=== PATIENT | female | born 1990 | race Two or more races ===

== ENCOUNTER 2021-04-20 12:44 | Emergency (ER) | payer BC ==
[~2021-04-20] VITALS: Ht 180.3 cm; Wt 68.1 kg
[2021-04-20 13:37] LABS: BILIRUBIN,URINE NEGATIVE (NEG); CLARITY,URINE CLEAR; COLOR,URINE AMBER; NITRITE,URINE NEGATIVE (NEG); PH,URINE 6.5 (<5.0-8.0); PROTEIN,URINE NEGATIVE (NEG-TRACE)
[2021-04-20] MEDS ORDERED: IV NORMAL SALINE 1000ML BAG 1,000 ML IV SCH (13:45)
[2021-04-20 13:49] LABS: BACTERIA,URINE MODERATE /HPF (0-FEW); RBC,URINE 0 /HPF (0-2); WBC,URINE OCC /HPF (0-4)
--- NOTE | 2021-04-20 14:03 | PHYS DOC ---
Past Medical History Past Surgical History: No Surgical History General Adult EDM: Chief Complaint: PELVIC PAIN HPI: HPI: Patient is a 30 year old female who presents with states for the last 3 days she has had right lower aching pain that is not going away. She states that over the weekend she had a positive test. She states her last menstrual period was March 07. She states last month she went to the clinic and was diagnosed with chlamydia and her and her sexual partner were both treated. She is rating her pain 6 out of 10. Patient states she did have a cold sweat last night but does not think she is been running a fever. She denies nausea, vomiting, diarrhea, chest pain, shortness of breath, cough, vaginal bleeding, abnormal vaginal discharge, back pain, urinary symptoms, dizziness or headache, fever. Patient has a history of 2 live children with normal versus. She states that is her only history. She states no surgeries. Patient states no medications daily. She states she has not taken any pain medications. Review of Systems: Review of Systems: Constitutional: Denies fever or chills. + Cold sweat last night [] Eyes: Denies change in visual acuity. [] HENT: Denies nasal congestion or sore throat. [] Respiratory: Denies cough or shortness of breath. [] Cardiovascular: Denies chest pain or edema. [] GI: + abdominal pain, denies nausea, vomiting, bloody stools or diarrhea. [] : Denies dysuria. [] Musculoskeletal: Denies back pain or joint pain. [] Integument: Denies rash. [] Neurologic: Denies headache, focal weakness or sensory changes. [] Endocrine: Denies polyuria or polydipsia. [] Lymphatic: Denies swollen glands. [] Psychiatric: Denies depression or anxiety. [] Heart Score: C/O Chest Pain: No Risk Factors: Risk Factors: DM, Current or recent (<one month) smoker, HTN, HLP, family history of CAD, obesity. Risk Scores: Score 0 - 3: 2.5% MACE over next 6 weeks - Discharge Home Score 4 - 6: 20.3% MACE over next 6 weeks - Admit for Clinical Observation Score 7 - 10: 72.7% MACE over next 6 weeks - Early Invasive Strategies Current Medications: Current Medications Medications (Trade) Dose Ordered Sig/Volodymyr Start Time Stop Time Status Last Admin Dose Admin Sodium Chloride 1,000 ml @ 1,000 mls/hr Q1H 04/20/21 13:45 04/20/21 14:44 Allergies: Allergies: Allergies Coded Allergies Type Severity Reaction Last Updated Verified No Known Drug Allergies 04/20/21 No Physical Exam: PE: Constitutional: Well developed, well nourished, no acute distress, non-toxic appearance. [] HENT: Normocephalic, atraumatic, bilateral external ears normal, oropharynx moist, no oral exudates, nose normal. [] Eyes: PERRLA, EOMI, conjunctiva normal, no discharge. [] Neck: Normal range of motion, no tenderness, supple, no stridor. [] Cardiovascular:Heart rate regular rhythm, no murmur [] Lungs & Thorax: Bilateral breath sounds clear to auscultation [] Abdomen: Bowel sounds normal, soft, right lower quadrant tenderness, no masses, no pulsatile masses. [] Skin: Warm, dry, no erythema, no rash. [] Back: No tenderness, no CVA tenderness. [] Extremities: No tenderness, no cyanosis, no clubbing, ROM intact, no edema. [] Neurologic: Alert and oriented X 3, normal motor function, normal sensory function, no focal deficits noted. [] Psychologic: Affect normal, judgement normal, mood normal. [] Current Patient Data: Labs: Laboratory Tests Test 04/20/21 13:22 04/20/21 13:35 Urine Collection Type Unknown Urine Color Lo Urine Clarity Clear Urine pH 6.5 (<5.0-8.0) Urine Specific [place] >=1.030 (1.000-1.030) Urine Protein Negative mg/dL (NEG-TRACE) Urine Glucose (UA) Negative mg/dL (NEG) Urine Ketones (Stick) Negative mg/dL (NEG) Urine Blood Negative (NEG) Urine Nitrite Negative (NEG) Urine Bilirubin Negative (NEG) Urine Urobilinogen Dipstick 1.0 mg/dL (0.2 mg/dL) Urine Leukocyte Esterase Negative (NEG) Urine RBC 0 /HPF (0-2) Urine WBC Occ /HPF (0-4) Urine Squamous Epithelial Cells Mod /LPF Urine Bacteria Moderate /HPF (0-FEW) Urine Mucus Mod /LPF POC Urine HCG, Qualitative Hcg positive (Negative) Vital Signs: Vital Signs Date Time Temp Pulse Resp B/P (MAP) Pulse Ox O2 Delivery O2 Flow Rate FiO2 04/20/21 13:24 98.2 76 17 125/60 97 Room Air 98.2 EKG: EKG: [] Radiology/Procedures: Radiology/Procedures: [] Impression: [facility] [id number] [place] [address] IMAGING REPORT Signed PATIENT: PARRIS VERAACCOUNT: [id number] : 1990 LOCATION: ER AGE: 30 SEX: F EXAM STATUS: REG ER ORD. PHYSICIAN: NICCI FRANKLIN APRN REASON: RIGHT LOWER QUAD PAIN; ? Appendicitis PROCEDURE: RIGHT LOWER QUANDRANT EXAM: Abdomen sonogram. HISTORY: Appendicitis. Right lower quadrant pain. TECHNIQUE: Sonographic imaging of the right lower quadrant was performed. COMPARISON: None. FINDINGS: The appendix is not seen. There is no free fluid or mass within the right lower quadrant. There is no evidence of pain with transducer pressure over the right lower quadrant. IMPRESSION: Nonvisualization of the appendix. There are no secondary findings to suggest appendicitis. MRI can be considered in this reportedly gravid patient if there is clinical concern for sonographically occult appendicitis. Electronically signed by: Magdalena Mckinney MD (04/20/2021 2:26 PM) [id number] DICTATED and SIGNED BY: MAGDALENA MCKINNEY MD DATE: 04/20/21 [id number] [address] [id number] IMAGING REPORT Signed PATIENT: PARRIS VERAACCOUNT: [id number] : 1990 LOCATION: ER AGE: 30 SEX: F EXAM STATUS: REG ER ORD. PHYSICIAN: NICCI FRANKLIN APRN REASON: rIGHT LOWER QUAD PAIN PROCEDURE: OB <14 WKS W/TV EXAM: Obstetrics sonogram. HISTORY: Right lower quadrant pain. TECHNIQUE: Transabdominal and transvaginal sonographic imaging of the pelvis was performed. COMPARISON: None. FINDINGS: The uterus measures 10.2 x 6.0 x 4.8 cm. The cervix is closed and measures 4.6 cm in length. There is a small fluid collection within the endome trial cavity, the appearance of which favors an early gestational sac. The mean sac diameter is 7 mm, corresponding with a gestational age of 5 weeks and 3 days. No yolk sac or pole is seen. The ovaries are normal in size and demonstrate normal blood flow. There is a 2.3 cm right corpus luteum cyst. There is no pelvic free fluid. IMPRESSION: 1. Small fluid collection within the endometrial cavity, the appearance of which favors an early gestational sac with a mean sac diameter corresponding with a g estational age of 5 weeks and 3 days. No pole is seen. Correlate with serial beta hCG levels and short-term sonographic follow-up to assess viability and exclude a pseudocyst sac in the setting of ectopic gestation or an empty gestational sac. 2. 2.6 cm right corpus luteum cyst. Electronically signed by: Magdalena Mckinney MD (04/20/2021 2:40 PM) [id number] DICTATED and SIGNED BY: MAGDALENA MCKINNEY MD DATE: 04/20/21 [id number] Course & Med Decision Making: Course & Med Decision Making Pertinent Labs and Imaging studies reviewed. (See chart for details) See HPI. Alert and oriented x4. Ambulatory with a steady gait. Speaks in full clear sentences. Afebrile. Vital signs within normal limits. Abdomen is soft slightly tender at the right lower quadrant with palpation. She states nothing makes his pain worse or better. Pelvic Exam: Grip Assembler present Abdomen: Slightly tender to right lower quadrant External Genitalia: Normal Skin Speculum: Normal vaginal mucosa, white/yellow cervical discharge Bimanual: No adnexal masses or tenderness, No CMT Urine has some bacteria in it and patient states that she has no concerns of STDs at this time. She will wait for the results in 48 hours. However since she is I will go ahead and give her some Rocephin in case she is to get a urinary tract infection. Ultrasound shows a early that is in the uterus. She does have an ovarian cyst. Blood work is unremarkable. Vital signs are unremarkable. Patient will be discharged home to follow-up with primary care provider [] Nick Disclaimer: Draglillie Disclaimer: This electronic medical record was generated, in whole or in part, using a voice recognition dictation system. Departure Departure Impression: Primary Impression: Abdominal pain affecting Additional Impression: Ovarian cyst Qualified Codes: N83.201 - Unspecified ovarian cyst, right side Disposition: HOME / SELF CARE / HOMELESS Condition: STABLE Referrals: NO PCP (PCP) MARTA GOODWIN Jr, MD Patient Instructions: Abdominal Pain During , Ovarian Cyst Additional Instructions: Follow-up with a RN INFORMATICS as soon as possible. Drink plenty of fluids. Take Tylenol for any current pain. If you begin having vaginal bleeding or severe abdominal pain return emergency room. NICCI FRANKLIN RISK LEAD Apr 20, 2021 14:03
[2021-04-20 14:07] LABS: BASO % 1 % (0-3); EOS # 0.1 x10^3/uL (0.0-0.7); EOS % 2 % (0-3); HEMATOCRIT 34.7 % (36.0-47.0); HEMOGLOBIN 11.5 g/dL (12.0-15.5); LYMPH % 28 % (24-48); MEAN CORPUSCULAR HEMOGLOBIN 28 pg (25-35); MEAN CORPUSCULAR HGB CONC 33 g/dL (31-37); MEAN CORPUSCULAR VOLUME 85 fL (79-100); MONO # 0.6 x10^3/uL (0.0-1.1); MONO % 9 % (0-9); NEUT # 4.3 x10^3/uL (1.8-7.7); NEUT % 61 % (31-73); PLATELET COUNT 343 x10^3/uL (140-400); RED BLOOD COUNT 4.09 x10^6/uL (3.50-5.40); RED CELL DISTRIBUTION WIDTH 16.2 % (11.5-14.5); WHITE BLOOD COUNT 7.1 x10^3/uL (4.0-11.0)
[2021-04-20 14:20] LABS: CALCIUM 8.9 mg/dL (8.5-10.1); CREATININE 0.5 mg/dL (0.6-1.0); GFR 144.9; POTASSIUM 3.7 mmol/L (3.5-5.1)
--- NOTE | 2021-04-20 14:29 | RAD ---
EXAM: Abdomen sonogram. HISTORY: Appendicitis. Right lower quadrant pain. TECHNIQUE: Sonographic imaging of the right lower quadrant was performed. COMPARISON: None. FINDINGS: The appendix is not seen. There is no free fluid or mass within the right lower quadrant. T here is no evidence of pain with transducer pressure over the right lower quadrant. IMPRESSION: Nonvisualization of the appendix. There are no secondary findings to suggest appendicitis . MRI can be considered in this reportedly gravid patient if there is clinical concern for sonographi naif occult appendicitis. Electronically signed by: Magdalena Mcginnis MD (04/20/2021 2:26 PM) [id number]
[2021-04-20 14:30] LABS: ALBUMIN 3.4 g/dL (3.4-5.0); ALBUMIN/GLOBULIN RATIO 0.9 (1.0-1.7); TOTAL BILIRUBIN 0.6 mg/dL (0.2-1.0); TOTAL PROTEIN 7.1 g/dL (6.4-8.2)
--- NOTE | 2021-04-20 14:42 | RAD ---
EXAM: Obstetrics sonogram. HISTORY: Right lower quadrant pain. TECHNIQUE: Transabdominal and transvaginal sonographic imaging of the pelvis was performed. COMPARISON: None. FINDINGS: The uterus measures 10.2 x 6.0 x 4.8 cm. The cervix is closed and measures 4.6 cm in length . There is a small fluid collection within the endometrial cavity, the appearance of which favors an early gestational sac. The mean sac diameter is 7 mm, corresponding with a gestational age of 5 weeks and 3 days. No yolk sac or pole is seen. The ovaries are normal in size and demonstrate normal blood flow. There is a 2.3 cm right corpus luteum cyst. There is no pelvic free fluid. IMPRESSION: 1. Small fluid collection within the endometrial cavity, the appearance of which favors an early gest ational sac with a mean sac diameter corresponding with a gestational age of 5 weeks and 3 days. No f etal pole is seen. Correlate with serial beta hCG levels and short-term sonographic follow-up to asse ss viability and exclude a pseudocyst sac in the setting of ectopic gestation or an empty gestational sac. 2. 2.6 cm right corpus luteum cyst. Electronically signed by: Magdalena Mcginnis MD (04/20/2021 2:40 PM) [id number]
[2021-04-20] MEDS ORDERED: cefTRIAXone IV Push 1 GM VIAL. IVP ONE (15:00)
[2021-04-20 15:30] VITALS: BP 113/64
[2021-04-22 01:15] LABS: GC PROBE Negative (Negative)
== END 2021-04-20 15:48 | disposition home or self-care (01) ==
LOC: ER 12:44
DX: O34.81 Maternal care for other abnormalities of pelvic organs, first trimester (principal); N83.201 Unspecified ovarian cyst, right side; Z3A.01 Less than 8 weeks gestation of pregnancy
CPT/HCPCS: 36415; 76801; 76817; 80053; 81001; 81025; 83690; 84702; 85025; 86850; 86900; 86901; 87086; 87491; 87591; 93975; 96361; 96374; 99285; J0696; J7030; Q0111